=== PATIENT | male | born 1950 | race Caucasian/White ===

== ENCOUNTER → 2021-05-07 | Outpatient (CLI) | payer MEDICARE, BC ==
[~2021-05-07] MED LIST: CENTRUM SILVER1 EAC7 PO; IBUPROFEN 200200 M1 PO; KRILL OIL500 MG PO; LIPITOR10 MG PO; LISINOPRIL-HCT1 EAC1 PO; METOPROLOL SUCC50 MG PO; NORVASC 2.5 MG2.5 M1 PO; OMEPRAZOLE40 MG PO; PEPCID40 MG PO; SITAVIG50 MG PO; SUPER CAL-MAG1 EACH PO; VITAMIN D3 COM1 EACH PO
[2021-05-07 09:26] LABS: ABSOLUTE BASOPHILS 0.1 thou/uL (0.0-0.2); ABSOLUTE EOSINOPHILS 0.2 thou/uL (0.0-0.7); ABSOLUTE LYMPHOCYTES 1.7 thou/uL (0.8-5.3); ABSOLUTE MONOCYTES 0.8 thou/uL (0.0-1.2); ABSOLUTE NEUTROPHILS 4.1 thou/uL (1.6-8.1); EOSINOPHILS 2.6 %; HEMATOCRIT 40.9 % (42.0-52.0); HEMOGLOBIN 13.8 gm/dL (14.0-18.0); MCHC 33.8 g/dL (28.0-37.0); MCV 94.7 fL (80.0-100.0); MONOCYTES 11.7 %; MPV 7.5 fl. (7.2-11.1); NUCLEATED RBCS 0 /100WBC; PLATELET COUNT* 279 thou/uL (150-400); POLYS 59.7 %; RBC 4.32 mil/uL (4.50-6.00); RDW-CV 13.9 % (10.5-14.5); WBC 6.9 thou/uL (4.0-11.0)
[2021-05-07 09:48] LABS: PROTIME 10.3 Seconds (9.20-11.50)
[2021-05-07 09:57] LABS: URINE BILIRUBIN NEGATIVE (Negative); URINE BLOOD NEGATIVE (Negative); URINE CLARITY CLEAR; URINE COLOR YELLOW; URINE GLUCOSE-RANDOM NEGATIVE (Negative); URINE KETONES NEGATIVE (Negative); URINE LEUKOCYTES-REFLEX NEGATIVE (Negative); URINE NITRITE-REFLEX NEGATIVE (Negative); URINE PROTEIN NEGATIVE (Negative); URINE UROBILINOGEN 0.2 E.U./dl (0.2-1.0)
[2021-05-07 10:16] LABS: ALBUMIN 4.3 g/dL (3.4-5.0); CREATININE 0.9 mg/dL (0.6-1.3); POTASSIUM 4.5 mmol/L (3.5-5.1); TOTAL BILIRUBIN 0.6 mg/dL (<0.1-1.0); TOTAL PROTEIN 7.2 g/dL (6.4-8.2)
--- NOTE | 2021-05-09 09:30 | EKG ---
[place] [address] ELECTROCARDIOGRAM REPORT Name: MADDY MCKEON Room: [facility]#: [id number] Admission: 05/07/21 Attend Phys: Thiago Villanueva, Discharge: Date of : 48 Date of Service: 05/07/21909 Report #: [id number] THIS REPORT FOR: //name// [facility] Test Date: 2021-05-07 Test Time: 09:10:56 Pat Name: MADDY MCKEON Department: Room: Gender: Activities Attendant: - : 1950 Requested By: Thiago Villanueva Order Number: [id number] Merary MD: Vignesh Flannery Measurements Intervals [place] Rate: 84 P: 56 CA: 213 QRS: 3 QRSD: 106 T: 43 QT: 380 QTc: 450 Interpretive Statements Sinus rhythm Borderline prolonged CA interval Low voltage, extremity and precordial leads No previous ECG available for comparison Electronically Signed On 05-09-2021 9:30:17 CDT by Vignesh Flannery [email or web address] <ELECTRONICALLY SIGNED> By: Vignesh Flannery MD, [facility] 05/09/2130 9 Vignesh Flannery MD, [facility] /EPI
== END ==
LOC: M.LAB
PROVIDERS: ATTEND Orthopaedic Surgery
DX: Z01.818 Encounter for other preprocedural examination (principal); Z01.812 Encounter for preprocedural laboratory examination; M17.11 Unilateral primary osteoarthritis, right knee

== ENCOUNTER 2021-05-13 08:27 | Inpatient (IN) | payer MEDICARE, BC ==
[~2021-05-13] VITALS: Ht 188 cm; Wt 88.5 kg
[2021-05-13 15:36] VITALS: BP 132/76
[2021-05-13 17:47] LABS: CALCIUM 8.4 mg/dL (8.5-10.1); CREATININE 1.1 mg/dL (0.6-1.3); POTASSIUM 4.1 mmol/L (3.5-5.1)
[2021-05-14] VITALS (7 sets, daily range): BP systolic 115–136; BP diastolic 64–81
[2021-05-14 05:32] LABS: HEMATOCRIT 34.2 % (42.0-52.0); HEMOGLOBIN 11.5 gm/dL (14.0-18.0); MCH 31.7 pg (26.0-34.0); MCHC 33.7 g/dL (28.0-37.0); MPV 7.6 fl. (7.2-11.1); RBC 3.64 mil/uL (4.50-6.00); RDW-CV 13.8 % (10.5-14.5); WBC 14.1 thou/uL (4.0-11.0)
[2021-05-14 05:57] LABS: ALBUMIN 3.5 g/dL (3.4-5.0); CALCIUM 8.5 mg/dL (8.5-10.1); CREATININE 0.7 mg/dL (0.6-1.3); MAGNESIUM 1.8 mg/dL (1.8-2.4); TOTAL BILIRUBIN 0.6 mg/dL (<0.1-1.0); TOTAL PROTEIN 6.5 g/dL (6.4-8.2)
[2021-05-14] MEDS ORDERED: PERCOCET PO (09:06)
[2021-05-14] MEDS ORDERED: XARELTO10 MG PO (09:06)
--- NOTE | 2021-05-16 21:08 | OP ---
[facility] [address] [place] [address] OPERATIVE REPORT Name: MADDY MCKEON [address] [id number] Admission: 05/13/21 Attend Phys: Nadja Means Discharge: 05/14/21 Date of : 48 Report #: [id number] THIS REPORT FOR: cc: Rober Castillo MD, Jason MD Greiner, Robert F. II DO ~ DATE OF SURGERY: 05/13/2021 PREOPERATIVE DIAGNOSIS: Right knee osteoarthritis. POSTOPERATIVE DIAGNOSIS: Right knee osteoarthritis. PROCEDURE: Right total knee arthroplasty. SURGEON: Thiago Villanueva II, DO VICE PRESIDENT EDUCATION: KALIE George. ANESTHESIA: General endotracheal. ESTIMATED BLOOD LOSS: 50 mL. ANTIBIOTICS: Ancef preoperatively. DRAINS: Medium Hemovac. COMPLICATIONS: None. CONDITION: The patient stable to recovery room. IMPLANTS: Listed in operative record and progress note. BRIEF HISTORY: The patient in the preoperative area. Preoperative H and P was performed. Site was marked, questions were answered. Risks and benefits were discussed with the patient in detail about surgery. The patient wished to proceed assuming all risks. DESCRIPTION OF PROCEDURE: The patient was taken to the operative suite, placed supine on the operative table, given appropriate anesthesia. A well-padded tourniquet applied to the upper thigh, which was inflated to 300 mmHg after gravity exsanguination. The operative knee was sterilely prepped and draped. Surgery began by midline incision was carried down to subcutaneous tissues. A medial parapatellar arthrotomy was performed, carried down to bone. Patella was then everted and excess soft tissue removed from the femur. Femoral cutting block was then applied, checked with a drop for rotational alignment, pinned in appropriate position and appropriate cuts were made. A 4-in-1 [place] [id number] OPERATIVE REPORT Name: MADDY MCKEON Walker Room: [address]#: [id number] Admission: 05/13/21 Attend Phys: Nadja Means Discharge: 05/14/21 Date of : 48 Report #: [id number] then applied, checked for rotational alignment, pinned in appropriate position and appropriate cuts were made. The tibia was then exposed. Excess meniscus was removed. Retractor was placed on collateral ligaments. The tibial cutting block was then applied, pinned in appropriate position, checked with a drop shubham for rotational alignment and slope and appropriate cut was made. Tibial bone was removed. Tibial baseplate was then applied, checked for rotational alignment with a drop shubham and pinned in appropriate position. Femur was then applied and box cut was reamed. This was then trialed with appropriate spacer, which showed excellent fit and fill and excellent stability throughout all range of motion. The patella was then reamed in appropriate fashion, sized appropriate size. Three peg holes were drilled and it was then trialed and shown to have excellent flexion, extension, excellent tracking patella within the groove. These trials were removed. The tibia was punched in appropriate fashion. Bone ends were cleansed with Pulsavac irrigation and cement was mixed and applied to final implants. These were then malleted into position and held the knee in extension and compressed to allow cement to cure. After cured, excess was removed utilizing Yawkey and osteotome. Wound was then copiously irrigated and the final spacer was then malleted into position. Tourniquet was deflated. Hemostasis was maintained with electrocautery. Pain cocktail was injected. Medium Hemovac drain was applied. Capsule was closed with 2 FiberWire and 1 Vicryl in [id number] fashion. Skin was closed with 2-0 Vicryl, running 3-0 Monocryl. Dermabond dressing applied. Chandan wrap and PolarCare applied. The patient transported to recovery in stable condition. Counts were correct throughout the procedure. <ELECTRONICALLY SIGNED> By: Thiago Villanueva II, DO 05/16/212107 22 44Thiago Villanueva II, DO /nt
== END 2021-05-14 13:30 | disposition home health service (06) | DRG 470 ==
LOC: M.ORTHSURG → M.3W 08:35 → M.TBA 08:35 → M.ORTHSURG 13:22 → M.3W 13:29
PROVIDERS: Internal Medicine; Orthopaedic Surgery; ADMIT Internal Medicine; ATTEND Internal Medicine
PROC: 0SRC0J9 Replacement of Right Knee Joint with Synthetic Substitute, Cemented, Open Approach (ICD-10-PCS; principal; 2021-05-13)
DX: M17.11 Unilateral primary osteoarthritis, right knee (principal); Z20.822 Contact with and (suspected) exposure to COVID-19; Z96.652 Presence of left artificial knee joint; Z98.42 Cataract extraction status, left eye; Z98.41 Cataract extraction status, right eye